=== PATIENT | female | born 1935 | race Hispanic/Latino ===

== ENCOUNTER → 2019-08-18 | Outpatient (CLI) | payer MEDICARE, OTHER ==
[~2019-08-18] MED LIST: IOPAMIDOL 370 MG/ML 200 ML INFUS..BTL INJ ONE; SODIUM CHLORIDE 0.9% 100 ML ONE
[2019-08-18 09:36] LABS: BLOOD UREA NITROGEN 15 mg/dL (7-26); BUN/CREATININE RATIO 22 (6-25); CREATININE, SERUM 0.68 mg/dL (0.57-1.11); EST GLOMERULAR FILTRATION RATE > 60 ML/MIN (60-)
--- NOTE | 2019-08-19 15:36 | Diagnostic Imaging Report ---
EXAMINATION: CT angiogram of the neck CLINICAL HISTORY: Subclavian steel syndrome, arterial stenoses, dizziness, nausea. COMPARISON STUDIES: None TECHNIQUE: Axial images were obtained from the thoracic inlet. Coronal and sagittal images reconstructed from the axial data. For optimization of of anatomic evaluation, multi-planar reconstructions, maximum intensity projections, and advanced 3D off-line post-processing was obtained and performed on a dedicated stand-alone workstation under the direct supervision of the interpreting physician. Intravenous contrast: 100 mL of Omnipaque 300. Dose modulation, iterative reconstruction, and/or weight based adjustment of the mA/kV was utilized to reduce the radiation dose to as low as reasonably achievable. Image quality: Prominent retrograde contrast flow to the vertebral veins mainly in the lower neck on the left side the medial evaluation of the left vertebral artery. FINDINGS: If present, stenosis of the carotid bulbs is measured based on NASCET criteria i.e area of maximum stenosis compared to the cervical ICA distal to the bulb. 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 Common carotid arteries: Right: Patent. No abnormalities. Left :Patent. No abnormalities. Carotid bulbs: Right: Patent. No abnormalities. Left :Patent. No abnormalities. Internal carotid arteries: Right: Patent. No abnormalities. Left: Patent. No abnormalities. Vertebral arteries: Patent right vertebral artery. Poorly visualized caudal segment of the left vertebral artery as detailed above. IMPRESSION: 1. 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 2. The caudal segment of the left vertebral artery is obscured by above-mentioned artifacts, in addition to probable retrograde flow. A neck Doppler ultrasound is recommended to further evaluate. 3. The bilateral carotid and right vertebral arteries are patent. Signed by: Dr. Peg Barrera M.D. on 08/19/2019 3:33 PM
== END ==
LOC: CT 08:32
PROVIDERS: ATTEND Internal Medicine Cardiovascular Disease
DX: G45.8 Other transient cerebral ischemic attacks and related syndromes (principal)
CPT/HCPCS: 36415; 70498; 82565; 84520; J7050; Q9967